=== PATIENT | female | born 1935 | race African-American/Black ===

== ENCOUNTER 2018-04-14 08:23 | Outpatient (CLI) | payer MEDICARE, MEDICAID ==
[~2018-04-14 08:23] MED LIST: ATARAX25 MG ORAL; CYMBALTA60 MG ORAL; DETROL2 MG ORAL; DIOVAN320 MG ORAL; HYDROCODON-ACE1 EA18 PO; JANUVIA100 MG ORAL; LEVEMIR FL100 UNIT/1 SUBQ; LIDODERM700 M1 TOPIC; PILOCARPINE HCL5 M1 PO; PRILOSEC40 MG ORAL; SIMVASTATIN80 MG ORAL; STARLIX120 MG ORAL; TEMAZEPAM30 MG ORAL; ZETIA10 MG ORAL
[2018-04-14 08:56] LABS: BLOOD UREA NITROGEN 22 mg/dL (7-18); CREATININE 2.1 MG/DL (0.55-1.30)
--- NOTE | 2018-04-14 12:36 | Diagnostic Imaging Report ---
Indication: Abdominal pain Technique: Continuous helical transaxial imaging of the abdomen and pelvis was obtained from the lung bases to the pubic symphysis during intravenous contrast administration. Coronal 2-D reformats were also obtained. Study obtained in a Siemens sensation [address] Automatic Exposure Control was utilized. Intravenous contrast could not be given due to renal insufficiency. Total Dose length Product (DLP): 1162.[address] Dose Index Volume (CTDIvol): 19.95 mGy Comparison: 06/06/2009 Findings: The lung bases notable for dense calcification in the lower part of the mediastinum posterior to the right hilum and the dense calcified granuloma at the right lung base. There are other tiny nodules that are noncalcified and remain nonspecific although these may be noncalcified granulomata. The additional nodules or small in the magnitude of 3 to 5 mm. At least some of these nodules were seen previously and appear unchanged. The wall of the visualized distal esophagus appears abnormally thickened. Consider evaluation with EGD. Gallstones are present. There is no hydronephrosis or nephrolithiasis. There is calcification of the aorta consistent with atherosclerotic disease. The bladder is nondistended. There is no evidence of bowel obstruction. No free fluid or free air identified. There is narrowing of intervertebral discs and accompanying endplate osteophyte formation. Hypertrophied facet joints also demonstrated. Uterus is absent. IMPRESSION: Moderate thickening of the wall the distal esophagus. Consider EGD for further evaluation. Multiple tiny noncalcified nodules involving the lung bases. Some of these were seen previously and likely associated with old granulomatous disease for which there is other evidence of (calcified lung granuloma and mediastinal calcification). Follow-up recommended with a CT chest in 3-6 months. Cholelithiasis. Atherosclerotic vascular disease. Status post hysterectomy. Degenerative spondylosis The CT scanner at [facility] is accredited by the [employer] and the scans are performed using dose optimization techniques as appropriate to a performed exam including Automatic Exposure control.
== END 2018-04-14 10:23 | disposition home or self-care (01) ==
LOC: CAT 08:23
DX: R10.9 Unspecified abdominal pain (principal); R91.8 Other nonspecific abnormal finding of lung field; K80.20 Calculus of gallbladder without cholecystitis without obstruction; I70.90 Unspecified atherosclerosis; Z90.710 Acquired absence of both cervix and uterus; M47.9 Spondylosis, unspecified
CPT/HCPCS: 36415; 74177; 82565; 84520; Q9967

== ENCOUNTER 2018-04-27 06:23 | Day surgery (SDC) | payer MEDICARE, MEDICAID ==
[2018-04-27] VITALS (9 sets, daily range): BP systolic 130–191; BP diastolic 47–80
[~2018-04-27] VITALS: Ht 165.1 cm; Wt 136.1 kg
[2018-04-27] MEDS ORDERED: LR 1000ml 1,000 ML IVLG SCH ×2 (07:00→08:59)
[2018-04-27] MEDS ORDERED: Lidocaine 1% MPF 10mg/ml 5ml ONE (07:30)
[2018-04-27] MEDS ORDERED: LR 1000ml ONE (07:30)
[2018-04-27] MEDS ORDERED: Propofol 200mg/20ml IV ONE (07:30)
--- NOTE | 2018-04-27 08:05 | Pre-Procedure Note/Attestation ---
Pre-Procedure Note/Attestation Complete Prior to Procedure Planned Procedure: not applicable Procedure Narrative: egd Indications for Procedure Pre-Operative Diagnosis: GERD Attestation I attest that I discussed the nature of the procedure; its benefits; risks and complications; and alternatives (and the risks and benefits of such alternatives ), prior to the procedure, with the patient (or the patient's legal outreach representative). I attest that, if there was a reasonable possibility of needing a blood transfusion, the patient (or the patient's legal outreach representative) was given the [facility] standardized written summary, pursuant to the Rodolfo [place] Blood Safety Act ([place] Health and Safety Code # 1645, as amended). I attest that I re-evaluated the patient just prior to the surgery and that there has been no change in the patient's H&P, except as documented below: Travis Jessica MD Apr 27, 2018 08:05
--- NOTE | 2018-04-27 08:05 | Short Stay Surgery H&P ---
History of Present Illness History of Present Illness Chief Complaint see printed H&P HPI Shreya Salvador is a 83 year old female who was admitted on for Abdominal Pain Patient History Allergies: Coded Allergies: PENICILLINS (Verified Allergy, Unknown, 10/19/10) Medication History Scheduled Duloxetine Hcl* (Cymbalta*), 60 MG ORAL DAILY, (Reported) Ezetimibe (Zetia*), 10 MG ORAL BEDTIME, (Reported) Nateglinide (Starlix), 120 MG ORAL THREE TIMES A DAY, (Reported) Omeprazole (Prilosec), 40 MG ORAL DAILY, (Reported) Pilocarpine Hcl (Pilocarpine Hcl), 5 MG PO TID, (Reported) Simvastatin (Zocor), 80 MG ORAL BEDTIME, (Reported) Sitagliptin (Januvia), 100 MG ORAL DAILY, (Reported) Tolterodine Tartrate* (Detrol*), 2 MG ORAL TWICE A DAY, (Reported) Valsartan (Diovan), 320 MG ORAL DAILY, (Reported) Scheduled PRN Hydroxyzine HCl (Hydroxyzine HCl), 25 MG ORAL FOUR TIMES A DAY PRN for Itching Temazepam* (Temazepam*), 30 MG ORAL BEDTIME PRN for Insomnia, (Reported) Miscellaneous Medications Hydrocodone Bit/Acetaminophen (Hydrocodon-Acetaminophen 5-300), 1 EACH PO, ( Reported) Insulin Detemir (Levemir Flexpen), 0 SUBQ, (Reported) Discontinued Medications Lidocaine (Lidoderm), 1 PATCH TOPIC DAILY, (Reported) Discontinued Reason: Pt stopped taking med Physical Exam Vital Signs Last Vital Signs Date Time Temp Pulse Resp B/P (MAP) Pulse Ox O2 Delivery O2 Flow Rate FiO2 04/27/18 07:06 Room Air 04/27/18 07:02 97.9 81 18 191/80 95 Plan Attestation Are the patient's medical conditions optimized for surgery? Travis Jessica MD Apr 27, 2018 08:05
[2018-04-27] MEDS ORDERED: Atropine Inj 1mg/10ml Syr IV PRN (09:00)
[2018-04-27] MEDS ORDERED: fentaNYL 100 mcg/2 mL IV PRN (09:00)
[2018-04-27] MEDS ORDERED: DiphenhydrAMINE 50mg/ml Inj IVP PRN (09:00)
[2018-04-27] MEDS ORDERED: Midazolam 2mg/2ml Inj IVP PRN (09:00)
--- NOTE | 2018-04-27 09:10 | Immediate Post-Op Evaluation ---
Immediate Post-Op Evalulation Immediate Post-Op Evalulation Procedure: egd w/bx Date of Evaluation: Apr 27, 2018 Time of Evaluation: 08:34 IV Fluids: 400ml lr Blood Products: none Estimated Blood Loss: negligible Blood Pressure Systolic: 132 Blood Pressure Diastolic: 70 Pulse Rate: 79 Respiratory Rate: 18 O2 Sat by Pulse Oximetry: 98 Temperature (Fahrenheit): 98.0 Pain Score (1-10): 0 Nausea: No Vomiting: No Complications none Patient Status: awake, reacts, patent Hydration Status: adequate Drug: Tamia Gregory MD Apr 27, 2018 09:10
--- NOTE | 2018-04-27 09:10 | Anethesia Preoperative Eval ---
Anesthesia Pre-op PMH/ROS General Date of Evaluation: Apr 27, 2018 Time of Evaluation: 07:30 Anesthesiologist: loulou ASA Score: ASA 4 Mallampati Score Class I : Soft palate, uvula, fauces, pillars visible Class II: Soft palate, uvula, fauces visible Class III: Soft palate, base of uvula visible Class IV: Only hard plate visible Mallampati Classification: Class II Surgeon: carlos enrique Diagnosis: abdominal pain Surgical Procedure: egd Anesthesia History: none Social History: current smoker Family History: no anesthesia problems Allergies: Coded Allergies: PENICILLINS (Verified Allergy, Unknown, 10/19/10) Medications: see eMAR Patient NPO?: Yes Past Medical History Cardiovascular: Reports: HTN Endocrine: Reports: DM HEENT: Reports: cataract (L), cataract (R) Musculoskeletal/Integumentary: Reports: OA Other: obesity Anesthesia Pre-op Phys. Exam Physician Exam Last Vital Signs Date Time Temp Pulse Resp B/P (MAP) Pulse Ox O2 Delivery O2 Flow Rate FiO2 04/27/18 08:55 98.0 70 19 151/59 96 Room Air Constitutional: NAD Neurologic: CN 2-12 intact Cardiovascular: RRR Respiratory: CTA Gastrointestinal: S/NT/ND Airway Exam Mallampati Score: Class II MO: limited Neck: flexible TMD: 2fb Teeth: missing Dentures: upper, lower Anesthesia Pre-op A/P Risk Assessment & Plan Assessment: asa4 Plan: mac Status Change Before Surgery: No Pre-Antibiotics Drug: Tamia Gregory MD Apr 27, 2018 09:10
--- NOTE | 2018-04-27 09:10 | 48 Hour Post Anesthesia Eval ---
Post Anesthesia Evaluation Procedure: egd w/bx Date of Evaluation: Apr 27, 2018 Time of Evaluation: 08:36 Blood Pressure Systolic: 130 0: 76 Pulse Rate: 80 Respiratory Rate: 18 Temperature (Fahrenheit): 98.0 O2 Sat by Pulse Oximetry: 98 Airway: patent Nausea: No Vomiting: No Pain Intensity: 0 Hydration Status: adequate Cardiopulmonary Status: stable Mental Status/LOC: patient returned to baseline Post-Anesthesia Complications: none Follow-up care needed: N/A Tamia Cartagena MD Apr 27, 2018 09:10
--- NOTE | 2018-05-01 09:19 | Endoscopy Procedure Note ---
Endoscopy Procedure Note General Indication for Procedure: GERD, vomiting Procedures Performed: EGD Operative Findings/Diagnosis: likely gastroparesis Specimen: yes Pt Tolerated Procedure Well: Yes Estimated Blood Loss: none Anesthesia Anesthesiologist: see report Anesthesia: MAC Medications Medication Given: see anesthesia record Inserted Devices Implant(s) used?: No GI Core Measures 50 yrs or older w/o bx or poly: Not Applicable 10yrs. F/U not recommended: Not Applicable If not recommended, why?: Travis Jessica MD May 01, 2018 09:19
--- NOTE | 2018-05-01 09:20 | Brief Operative Note ---
Immediate Post Operative Note Operative Note Chief Complaint: GERD, vomiting Pre-op Diagnosis: GERD Procedure: EGD/Bx Post-op Diagnosis: food residual, s/p bx esoph, antrum, duodenum Post-op Diagnosis: same as pre-op Surgeon: carlos enrique Anesthesiologist: see report Anesthesia: MAC Specimen: yes Complications: none Condition: stable Fluids: recorded Estimated Blood Loss: none Drains: none Implant(s) used?: No Travis Jessica MD May 01, 2018 09:20
--- NOTE | 2018-05-01 17:30 | Operative Note - Dictated ---
DATE OF OPERATION: 04/27/2018 PROCEDURE: Upper gastrointestinal endoscopy with biopsy. SURGEON: Travis Jessica M.D. ANESTHESIA: Please see the separate anesthesiologist notes for details. PRE-ENDOSCOPIC DIAGNOSIS: Symptoms of gastroesophageal reflux disease as well as periodic nausea and vomiting. POST-ENDOSCOPIC DIAGNOSES: 1. Significant residual solid stool seen in the stomach consistent with gastroesophageal reflux disease. 2. No evidence of mass, lesions, ulcerations, or erosions identified. 3. Status post random biopsies of the duodenum, antrum, and lower esophagus. DESCRIPTION OF PROCEDURE: The procedure, its risks, indications, alternatives, and possible complications were explained and an informed consent was obtained. The diagnostic upper endoscope was introduced into the oropharynx and advanced to the duodenum. The endoscope was then gradually withdrawn and the mucosa examined carefully. Examination of the upper gastrointestinal mucosa revealed a large amount of solid stool seen in the distal stomach. There were otherwise no other abnormalities identified. Biopsies of the duodenum, antrum, and lower esophagus were sent to pathology for review. The patient was sent to recovery in good condition. COMPLICATIONS: None. ASSESSMENT: This patient's examination was notable for a large amount of food in the stomach, which is consistent with gastroparesis. 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 The biopsies will be evaluated. The patient will be treated for Helicobacter pylori if positive. In the meantime, gastric emptying study can be done to document the level of motility agents can be discussed. RECOMMENDATIONS: 1. Resume oral diet. 2. Follow up biopsy results. 3. Check and treat Helicobacter pylori if positive. 4. Gastric emptying study. 5. Continue proton pump inhibitor. 6. We will discuss motility agents at next visit. Thank you for asking me to participate in the care of this patient. Travis Jessica M.D. DR: WILY JOB#: [id number] CC: Darrell Gilmore M.D.; Fax#: [phone]
== END 2018-04-27 09:45 | disposition home or self-care (01) ==
LOC: GAS 06:23
DX: K21.9 Gastro-esophageal reflux disease without esophagitis (principal); R11.2 Nausea with vomiting, unspecified; E11.9 Type 2 diabetes mellitus without complications; Z79.4 Long term (current) use of insulin; E66.9 Obesity, unspecified; I10 Essential (primary) hypertension; M19.90 Unspecified osteoarthritis, unspecified site; Z88.0 Allergy status to penicillin
CPT/HCPCS: 43239; 82962; J2704; 94003; 94150

== ENCOUNTER 2018-05-16 13:42 | Emergency (ER) | payer MEDICARE, MEDICAID ==
[~2018-05-16] VITALS: Ht 165.1 cm; Wt 113.4 kg
[2018-05-16] MEDS ORDERED: UNOBMED (13:45)
[2018-05-16 13:46] VITALS: BP 138/60
--- NOTE | 2018-05-16 14:05 | Emergency Room Report ---
History of Present Illness General Chief Complaint: Multiple Trauma/Fall Source: Patient, Medical Record, EMS Present Illness HPI 83-year-old female with hypertension diabetes, presenting with fall. Patient states that she got up from bed, she has a hospital bed at home, she rolled over and then missed a step and then fell. She hit her head on the dresser. Fell on her back. Now complaining of sacral pain, and left knee pain. Patient also states that she has slight right-sided headache. No LOC, no altered mental status, there is no syncopal episode. Patient does not take any blood thinners. Patient called for help immediately after the fall, her grandson was home. Allergies: Coded Allergies: PENICILLINS (Verified Allergy, Unknown, 10/19/10) Patient History Past Medical History: see triage record Past Surgical History: none Pertinent Family History: none Last Menstrual Period: menopause Reviewed Nursing Documentation: PMH: Agreed; PSxH: Agreed Nursing Documentation-PMH Past Medical History: No History, Except For Hx Cardiac Problems: No - arthritis Hx Hypertension: Yes Hx Diabetes: Yes Hx Cancer: No Hx Gastrointestinal Problems: Yes Hx Neurological Problems: No Review of Systems All Other Systems: negative except mentioned in HPI Physical Exam Vital Signs Date Time Temp Pulse Resp B/P (MAP) Pulse Ox O2 Delivery O2 Flow Rate FiO2 05/16/18 13:38 98.2 82 18 156/87 95 Room Air Sp02 EP Interpretation: reviewed, normal General Appearance: alert, GCS 15, non-toxic, mild distress Head: normocephalic, atraumatic Eyes: bilateral eye normal inspection, bilateral eye PERRL, bilateral eye EOMI ENT: normal ENT inspection, normal pharynx, normal voice, moist mucus membranes Neck: normal inspection, full range of motion, supple Respiratory: normal inspection, lungs clear, normal breath sounds, no respiratory distress, no retraction, no wheezing, speaking full sentences, chest symmetrical Cardiovascular #1: normal inspection, regular rate, rhythm, normal capillary refill Cardiovascular #2: 2+ radial (R), 2+ radial (L) Gastrointestinal: normal inspection, non tender, soft, non-distended, no guarding Musculoskeletal: other - Mild paraspinal lumbosacral tenderness, has full range of motion at hip joints, able to bend left knee, however tender to palpation anterior region of left knee. No leg shortening or rotation. No ecchymosis edema or gross bony deformities Neurologic: normal inspection, alert, oriented x3, responsive, motor strength/ tone normal, sensory intact, speech normal Psychiatric: normal inspection, judgement/insight normal, memory normal Skin: normal inspection, normal color, no rash, warm/dry, well hydrated, normal turgor Medical Decision Making Diagnostic Impression: Primary Impression: Contusion Additional Impression: Fall ER Course 83-year-old female, mechanical fall out of bed, no LOC DDX: Left knee and sacral contusion versus fracture, head contusion versus intracranial bleed although less likely patient is neurologically intact Plan: X-ray of lumbosacral region, x-ray left knee, CT head ER course: Patient has remained stable during ED stay. Awake and alert Disposition: Patient is to be discharged to home. Patient is instructed to follow up with their primary care doctor within 5 days. Please note that this Emergency Department Report was dictated using [employer] pole treater technology software, occasionally this can lead to erroneous entry secondary to interpretation by the dictation equipment Rhythm Strip EP Interpretation: Yes Rate: 75 Rhythm: NSR, no PVCs, no ectopy Xray: Lumbosacral 3 view Indication: Pain EP Interpretation: Yes Interpretation: No dislocation, no soft tissue swelling, no fractures Impression: No acute disease Electronically signed by Evonne Mayers MD Xray: Sacrum coccyx Complete Indication: Pain EP Interpretation: Yes Interpretation: No dislocation, no soft tissue swelling, no fractures Impression: No acute disease Electronically signed by Evonne Mayers MD Xray: Left knee complete Indication: Pain EP Interpretation: Yes Interpretation: No dislocation, no soft tissue swelling, no fractures Impression: No acute disease Electronically signed by Evonne Mayers MD CT/MRI/US Diagnostic Results CT/MRI/US Diagnostic Results : Imaging Test Ordered: CT HEAD Impression no acute changes Last Vital Signs Date Time Temp Pulse Resp B/P (MAP) Pulse Ox O2 Delivery O2 Flow Rate FiO2 05/16/18 13:46 82 18 Room Air 05/16/18 13:46 98.2 138/60 97 Disposition: HOME, SELF-CARE Condition: Improved Evonne Mayers M.D. May 16, 2018 14:05
--- NOTE | 2018-05-16 15:03 | Diagnostic Imaging Report ---
Indications: 83-year-old female with headache status post head trauma secondary to fall Technique: Spiral acquisitions obtained through the brain. Angled axial and coronal 5 x 5 mm slices were reconstructed. Total dose length product 1386.64 mGycm. CTDI vol(s) 70.38 mGy. Dose reduction achieved using automated exposure control Comparison: None. Findings: There is age-related enlargement of the ventricles and extra axial CSF spaces. There is periventricular deep white matter low-attenuation consistent with chronic ischemic change. There is questionably an old lacunar infarct within the left side of the midbrain. 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 Intact calvarium. The mastoids are clear. Visualized orbits are unremarkable. There is evidence of prior bilateral cataract surgery. Impression: Chronic and age-related changes. Negative for acute intracranial bleed or mass effect. The CT scanner at [facility] is accredited by the [employer] and the scans are performed using protocols designed to limit radiation exposure to as low as reasonably achievable to attain images of sufficient resolution adequate for diagnostic evaluation.
--- NOTE | 2018-05-16 15:25 | Diagnostic Imaging Report ---
Indication: Knee pain Technique: 3 views of the left knee Comparison: None Findings: There is degenerative narrowing of the medial joint compartment and of the patellofemoral compartment.. There are medial osteophytes. No suprapatellar effusion. No acute fractures. No dislocations. Impression: Degenerative changes as described No acute bony trauma
--- NOTE | 2018-05-16 15:39 | Diagnostic Imaging Report ---
Indication: Lower back pain Technique: 3 views of the lumbar spine Comparison: None Findings: Bony alignment is normal. Vertebral body heights are preserved. The disc spaces are preserved. There are degenerative proliferative changes. Bones appear osteoporotic. Pedicles are intact. Sacral arches are preserved. Sacroiliac joint spaces are preserved Impression: Degenerative changes, as described No acute bony trauma
--- NOTE | 2018-05-16 15:42 | Diagnostic Imaging Report ---
Indication: Pain Technique: 3 views of the sacrum and coccyx Comparison: Findings: Bones are osteoporotic. No acute fractures. The sacroiliac joint spaces are preserved. The pedicles are intact. There are mild degenerative changes of the lumbosacral junction and of the coccygeal discs Impression: No acute process
[2018-05-16 16:25] VITALS: BP 132/61
[2018-05-16 16:30] VITALS: BP 132/61
== END 2018-05-16 16:30 | disposition home or self-care (01) ==
LOC: EDBD 13:42 → EMR 14:19
DX: M54.5 Low back pain (principal); M25.562 Pain in left knee; R51 Headache; W06.XXXA Fall from bed, initial encounter; Y92.003 Bedroom of unspecified non-institutional (private) residence as the place of occurrence of the external cause; I10 Essential (primary) hypertension; E11.9 Type 2 diabetes mellitus without complications; Z88.0 Allergy status to penicillin
CPT/HCPCS: 70450; 72020; 72220; 99284